=== PATIENT | female | born 1940 | race Caucasian/White ===

== ENCOUNTER 2020-03-26 19:57 | Emergency (ER) | payer MEDICARE ==
[~2020-03-26] VITALS: Ht 152.4 cm; Wt 58.0 kg
[2020-03-26] MEDS ORDERED: RALO1TAB (20:09)
[2020-03-26] MEDS ORDERED: LISI-538 (20:09)
[2020-03-26] MEDS ORDERED: SIMV20TA22 (20:09)
[2020-03-26] MEDS ORDERED: LEVO25TA5 (20:09)
[2020-03-26 21:50] LABS: BASO # 0.1 10^3/uL (0.0-0.2); BASO % 0.8 % (0.0-1.0); EOS # 0.1 10^3/uL (0.0-0.5); EOS % 0.9 % (0.0-3.0); HEMATOCRIT 41.9 % (36.0-47.0); HEMOGLOBIN 13.2 g/dl (12.0-15.5); LYMPH # 3.3 10^3/uL (1.5-5.0); LYMPH % 28.1 % (24.0-44.0); MEAN CORPUSCULAR HEMOGLOBIN 30.4 pg (27.0-33.0); MEAN CORPUSCULAR HGB CONC 31.5 g/dl (32.0-36.5); MEAN CORPUSCULAR VOLUME 96.5 fl (80.0-96.0); MONO # 1.1 10^3/uL (0.0-0.8); MONO % 9.2 % (0.0-5.0); NEUTROPHILS # 7.2 10^3/uL (1.5-8.5); NEUTROPHILS % 60.7 % (36.0-66.0); PLATELET COUNT, AUTOMATED 234 10^3/uL (150-450); RED BLOOD COUNT 4.34 10^6/uL (4.00-5.40); WHITE BLOOD COUNT 11.9 10^3/uL (4.0-10.0)
--- NOTE | 2020-03-26 22:06 | REPVR ---
PROCEDURE INFORMATION: Exam: CT Abdomen And Pelvis Without Contrast Exam date and time: 03/26/2020 9:27 PM Age: 79 years old Clinical indication: Abdominal pain; Flank; Left; Additional info: Left flank pain, h/o stones, left hip injury TECHNIQUE: Imaging protocol: Computed tomography of the abdomen and pelvis without contrast. Radiation optimization: All CT scans at this facility use at least one of these dose optimization techniques: automated exposure control; mA and/or kV adjustment per patient size (includes targeted exams where dose is matched to clinical indication); or iterative reconstruction. COMPARISON: No relevant prior studies available. FINDINGS: Mediastinal space: A small hiatal hernia is present. Liver: Normal. No mass. Gallbladder and bile ducts: Normal. No calcified stones. No ductal dilation. Pancreas: Normal. No ductal dilation. Spleen: Normal. No splenomegaly. Adrenal glands: Normal. No mass. Kidneys and ureters: Bilateral nonobstructive renal calculi. Possible 10 mm cyst posterior aspect left kidney. Nonemergent Ultrasound correlation could be obtained if clinically desired. Stomach and bowel: There is increased feces throughout the colon consistent with constipation. Mild diverticulosis is present in the distal colon. No diverticulitis. Appendix: No evidence of appendicitis. Intraperitoneal space: Unremarkable. No free air. No significant fluid collection. Vasculature: The aortoiliac vessels demonstrate moderate atherosclerotic calcification. Lymph nodes: Unremarkable. No enlarged lymph nodes. Urinary bladder: Unremarkable as visualized. Reproductive: 11 mm coarse calcification within the left ovary may represent an incidental dermoid. Bones/joints: Moderate to severe central spinal stenosis L3-L4. Grade 2 degenerative anterolisthesis of L4 on L5. Inflammatory changes adjacent to the left hip. In the absence of trauma infection to be excluded clinically. Soft tissues: Unremarkable. IMPRESSION: 1. A small hiatal hernia is present. 2. Bilateral nonobstructive renal calculi. 3. 11 mm coarse calcification within the left ovary may represent an incidental dermoid. 4. Possible 10 mm cyst posterior aspect left kidney. Nonemergent Ultrasound correlation could be obtained if clinically desired. 5. There is increased feces throughout the colon consistent with constipation. 6. Mild diverticulosis is present in the distal colon. No diverticulitis. 7. Inflammatory changes adjacent to the left hip. In the absence of trauma infection to be excluded clinically. COMMENTS: Consistent with the [employer]'s Incidental Findings Committee white paper (J Am Julianna Radiol 2018): Any incidental renal lesion less than 1 cm or classified as too small to characterize, or any incidental cystic renal lesion characterized as simple-appearing, is likely benign. No follow-up imaging is recommended for these lesions per consensus recommendations based on imaging criteria. Electronically signed by: Zach Knott On 03/26/2020 22:06:07 PM
[2020-03-26 22:17] LABS: ALBUMIN 3.9 GM/DL (3.2-5.2); BILIRUBIN,DIRECT 0.1 MG/DL (0.0-0.2); BILIRUBIN,TOTAL 0.5 MG/DL (0.2-1.0); CALCIUM LEVEL 9.4 MG/DL (8.8-10.2); CREATININE FOR GFR 0.98 MG/DL (0.55-1.30); POTASSIUM SERUM 3.6 MEQ/L (3.5-5.1); TOTAL PROTEIN 7.1 GM/DL (6.4-8.2)
[2020-03-26] MEDS ORDERED: CIPR-249 PO (22:47)
[2020-03-26] MEDS ORDERED: IBUP-1114 PO (22:48)
[2020-03-26] MEDS ORDERED: cefTRIAXone SOD 1 GM in D5W MINI-BAG PLUS 50 ML IV ONE (23:00)
[2020-03-26] MEDS ORDERED: KETOROLAC 30 MG/ML 1ML VIAL IV ONE (23:00)
[2020-03-27] VITALS: BP 124/60
== END 2020-03-27 00:10 | disposition home or self-care (01) ==
LOC: M ED 19:57
DX: N10 Acute pyelonephritis (principal); N20.0 Calculus of kidney; R93.422 Abnormal radiologic findings on diagnostic imaging of left kidney; R93.5 Abnormal findings on diagnostic imaging of other abdominal regions, including retroperitoneum; R93.3 Abnormal findings on diagnostic imaging of other parts of digestive tract; I10 Essential (primary) hypertension; Z87.442 Personal history of urinary calculi
CPT/HCPCS: 74176; 80048; 80076; 81001; 83690; 85025; 87086; 93041; 96365; 96375; 99284; J0696; J1885

== ENCOUNTER → 2020-03-29 | Outpatient (REF) | payer MEDICARE, BC ==
[~2020-03-29] MED LIST: CIPR-249 PO; IBUP-1114 PO; LEVO25TA5; LISI-538; RALO1TAB; SIMV20TA22
== END ==
LOC: M LAB REF 16:30
PROVIDERS: ATTEND Internal Medicine
DX: N39.0 Urinary tract infection, site not specified (principal)

== ENCOUNTER → 2020-08-16 | Outpatient (CLI) | payer MEDICARE, BC ==
[~2020-08-16] MED LIST changes: -LISI-538; +LISI20TA33
--- NOTE | 2020-08-28 18:15 | REPMRS ---
Patient History The patient states she has not had a clinical breast exam in over a year. Patient is postmenopausal. Family history of breast cancer at age 48 in daughter. Benign excisional biopsy of the left breast, 2000. No Hormone Replacement Therapy Tomosynthesis is performed. Volpara breast density is b. [facility] lifetime risk of breast cancer 2.0%. Patient states no breast complaints today. Patient has signed MRS History Sheet. Digital Woman Screen Mammo: August 16, 2020 - Exam #: [id number] Bilateral CC and MLO view(s) were taken. Technologist: Carissa Muhammad, Technologist Prior study comparison: January 06, 2019, bilateral digital mammo screening bilat, performed at [facility]. FINDINGS: The breast tissue is heterogeneously dense. This may lower the sensitivity of mammography. There has been no change in the appearance of the mammogram from the prior studies. There is a moderate amount of residual fibroglandular tissue which is fairly symmetric. There is no interval development of dominant mass, areas of architectural distortion, or clustered microcalcification typical of malignancy. Assessment: BI-RADS/ACR category 1 mammogram. Negative Mammogram. Recommendation Routine screening mammogram in 1 year (for women over age 40). This mammogram was interpreted with the aid of an FDA-approved computer-aided dectection system. Electronically Signed By: Reese Pritchett MD 08/28/20 [id number]
== END ==
LOC: M WHC 13:22
PROVIDERS: ATTEND Internal Medicine
DX: Z12.31 Encounter for screening mammogram for malignant neoplasm of breast (principal); Z78.0 Asymptomatic menopausal state; Z80.3 Family history of malignant neoplasm of breast; Z98.890 Other specified postprocedural states; M81.0 Age-related osteoporosis without current pathological fracture

== ENCOUNTER → 2021-10-25 | Outpatient (CLI) | payer MEDICARE, BC | LOC: M WHC 10:28 | PROVIDERS: ATTEND Internal Medicine | DX: Z12.31 Encounter for screening mammogram for malignant neoplasm of breast (principal); M81.0 Age-related osteoporosis without current pathological fracture; M85.89 Other specified disorders of bone density and structure, multiple sites ==

== ENCOUNTER → 2022-04-11 | Outpatient (REF) | payer MEDICARE, BC | LOC: M PLALAB 16:58 | PROVIDERS: ATTEND Nurse Practitioner Family | DX: Z12.4 Encounter for screening for malignant neoplasm of cervix (principal) | CPT/HCPCS: 87624; G0123 ==

== ENCOUNTER → 2022-09-02 | Outpatient (REF) | payer MEDICARE, BC | LOC: M LAB REF 12:43 | PROVIDERS: ATTEND Internal Medicine | DX: N95.0 Postmenopausal bleeding (principal) ==

== ENCOUNTER → 2022-09-03 | Outpatient (CLI) | payer MEDICARE, BC | LOC: M WHC 09:57 | PROVIDERS: ATTEND Internal Medicine | DX: N95.0 Postmenopausal bleeding (principal); N85.4 Malposition of uterus ==

== ENCOUNTER → 2022-10-29 | Outpatient (CLI) | payer MEDICARE, BC | LOC: M WHC 11:57 | PROVIDERS: ATTEND Internal Medicine | DX: Z12.31 Encounter for screening mammogram for malignant neoplasm of breast (principal) ==

== ENCOUNTER → 2022-10-29 | Outpatient (CLI) | payer MEDICARE, BC | LOC: M WHC 10:55 → MERGE 10:55 | PROVIDERS: ATTEND Internal Medicine | DX: Z53.9 Procedure and treatment not carried out, unspecified reason (principal) ==

== ENCOUNTER → 2023-04-06 | Outpatient (REF) | payer MEDICARE, BC | LOC: M LAB REF 10:05 | PROVIDERS: ATTEND Student in an Organized Health Care Education/Training Program | DX: R30.0 Dysuria (principal) ==

== ENCOUNTER → 2023-04-07 | Outpatient (CLI) | payer MEDICARE, BC | LOC: M RAD 14:52 | PROVIDERS: ATTEND Internal Medicine Cardiovascular Disease | DX: R01.1 Cardiac murmur, unspecified (principal); R06.02 Shortness of breath; I10 Essential (primary) hypertension; Z87.891 Personal history of nicotine dependence; R09.89 Other specified symptoms and signs involving the circulatory and respiratory systems; I65.23 Occlusion and stenosis of bilateral carotid arteries ==

== ENCOUNTER → 2023-05-21 | Outpatient (CLI) | payer MEDICARE, BC | LOC: M PLAIMG 12:27 | PROVIDERS: ATTEND Internal Medicine Cardiovascular Disease | DX: R06.02 Shortness of breath (principal); R94.31 Abnormal electrocardiogram [ECG] [EKG]; I49.1 Atrial premature depolarization ==

== ENCOUNTER → 2023-05-27 | Outpatient (CLI) | payer MEDICARE, BC | LOC: M EKG 10:28 | PROVIDERS: ATTEND Internal Medicine Cardiovascular Disease | DX: I49.1 Atrial premature depolarization (principal) ==

== ENCOUNTER → 2024-02-03 | Outpatient (CLI) | payer MEDICARE, BC | LOC: M WHC 11:07 | PROVIDERS: ATTEND Specialist | DX: Z78.0 Asymptomatic menopausal state (principal); Z12.31 Encounter for screening mammogram for malignant neoplasm of breast; R92.323 Mammographic fibroglandular density, bilateral breasts ==

== ENCOUNTER → 2024-02-03 | Outpatient (REF) | payer MEDICARE, BC ==
[2024-02-05 17:01] LABS: HPV APTIMA Not Detected (Not Detected)
== END ==
LOC: M SFHCWAGY 14:15
PROVIDERS: ATTEND Specialist
DX: Z12.4 Encounter for screening for malignant neoplasm of cervix (principal)
CPT/HCPCS: 87624; G0123

== ENCOUNTER → 2024-02-03 | Outpatient (CLI) | payer MEDICARE, BC | LOC: M WHC 11:06 | PROVIDERS: ATTEND Specialist | DX: Z12.31 Encounter for screening mammogram for malignant neoplasm of breast (principal); Z78.0 Asymptomatic menopausal state; Z53.9 Procedure and treatment not carried out, unspecified reason ==

== ENCOUNTER → 2025-02-22 | Outpatient (CLI) | payer MEDICARE, BC, OTHER | LOC: M WHC 10:04 | PROVIDERS: ATTEND Specialist | DX: Z12.31 Encounter for screening mammogram for malignant neoplasm of breast (principal); R92.323 Mammographic fibroglandular density, bilateral breasts ==